=== PATIENT | female | born 1955 ===

== ENCOUNTER 2022-05-23 10:15 | Inpatient (IN) | payer OTHER ==
[~2022-05-23] VITALS: Ht 165.1 cm; Wt 78.0 kg
[2022-05-23] MEDS ORDERED: ZOLOFT50 MG PO (13:28)
[2022-05-23] MEDS ORDERED: FIORICET (13:29)
== END 2022-05-26 14:48 | disposition home or self-care (01) | DRG 741 ==
LOC: OB/GYN 05-24 06:50 → O/R 05-24 06:50 → SURG 05-24 08:00 → OB/GYN 05-24 14:40
PROVIDERS: ADMIT Specialist; ATTEND Specialist
PROC: 0UT20ZZ Resection of Bilateral Ovaries, Open Approach (ICD-10-PCS; 2022-05-24)
PROC: 0UT70ZZ Resection of Bilateral Fallopian Tubes, Open Approach (ICD-10-PCS; 2022-05-24)
PROC: 0UT90ZZ Resection of Uterus, Open Approach (ICD-10-PCS; principal; 2022-05-24 08:00)
DX: D06.9 Carcinoma in situ of cervix, unspecified (principal); Z20.822 Contact with and (suspected) exposure to COVID-19